=== PATIENT | male | born 1965 | race Caucasian/White ===

== ENCOUNTER 2017-08-10 19:48 | Emergency (ER) | payer MEDICAID ==
[~2017-08-10] VITALS: Ht 175.3 cm; Wt 82.5 kg
[~2017-08-10 19:48] MED LIST: ALBU18HF2 INH; ALBU6.7H INH; AZIT250T PO; CITA20TA19 PO; CLOT15CR29 TP; CLOT15CR5 TP; CLOT15CR73 TP; KETO15CR2 TOP; MUPI22OI TP
[2017-08-10 20:45] LABS: BASOPHILS % (AUTO) 0 % (0-1); EOSINOPHILS # (AUTO) 0.2 X10'3 (0-0.9); EOSINOPHILS % (AUTO) 1.7 % (0-6); HEMATOCRIT 42.7 % (42.0-52.0); HEMOGLOBIN 14.9 g/dl (14.0-17.9); LYMPHOCYTES # (AUTO) 1.1 X10'3 (1.1-4.8); MEAN CORPUSCULAR HEMOGLOBIN 32.3 PG (27.0-31.0); MEAN CORPUSCULAR HGB CONC 34.8 % (33.0-36.5); MEAN CORPUSCULAR VOLUME 92.8 FL (78-98); MEAN PLATELET VOLUME 7.9 FL (7.4-10.4); MONOCYTES # (AUTO) 0.7 X10'3 (0-0.9); MONOCYTES % (AUTO) 5.4 % (2-12); NEUTROPHILS # (AUTO) 10.4 X10'3 (1.8-7.7); NEUTROPHILS % (AUTO) 83.9 % (42-75); PLATELET COUNT 129 X10'3 (140-440); RED CELL DISTRIBUTION WIDTH 12.5 % (11.5-14.5); WHITE BLOOD COUNT 12.4 X10'3 (4.5-11.0)
[2017-08-10 20:55] LABS: PARTIAL THROMBOPLASTIN TIME 26 SECONDS (22-32); PROTHROMBIN TIME 10.7 SECONDS (9.0-12.0)
[2017-08-10 20:58] LABS: ALANINE AMINOTRANSFERASE 19 U/L (12-78); ALBUMIN 3.7 G/DL (3.4-5.0); ALBUMIN/GLOBULIN RATIO 0.9 (1.1-1.5); ALKALINE PHOSPHATASE 87 IU/L (46-116); ANION GAP 13 (8-16); ASPARTATE AMINO TRANSFERASE 10 U/L (10-37); BILIRUBIN,TOTAL 1.1 MG/DL (0.1-1.0); BLOOD UREA NITROGEN 11 MG/DL (7-18); BUN/CREATININE RATIO 8.5 (5.4-32.0); CALCIUM 8.9 MG/DL (8.5-10.1); CHLORIDE 104 MMOL/L (99-107); GLUCOSE 116 MG/DL (70-104); POTASSIUM 3.6 MMOL/L (3.5-5.1); SODIUM 140 MMOL/L (135-145); TOTAL CARBON DIOXIDE 23.2 MMOL/L (24-32); TOTAL PROTEIN 7.8 G/DL (6.4-8.2); eGFR 58 ML/MIN
[2017-08-10] MEDS ORDERED: methylPREDNISolone sod succ 125mg/2ml vial IV ONE (21:15)
[2017-08-10] MEDS ORDERED: normal saline 1000ML IV soln IVB ONE (21:15)
[2017-08-10] MEDS ORDERED: ipratropium/albuterol 3ml nebule NEB ONE (21:15)
[2017-08-10] MEDS ORDERED: PRED20TA PO (21:17)
[2017-08-10] MEDS ORDERED: GUAI1TBM19 PO (21:18)
[2017-08-10 22:25] VITALS: BP 131/80
== END 2017-08-10 22:27 | disposition home or self-care (01) ==
LOC: ER 19:49
DX: J44.1 Chronic obstructive pulmonary disease with (acute) exacerbation (principal); J06.9 Acute upper respiratory infection, unspecified; Z90.49 Acquired absence of other specified parts of digestive tract; Z86.14 Personal history of Methicillin resistant Staphylococcus aureus infection; Z59.0 Homelessness; Z79.899 Other long term (current) drug therapy
CPT/HCPCS: 36415; 71045; 80053; 84484; 85025; 85610; 85730; 93005; 94640; 94760; 96361; 96374; 99285; J2930; J7030

== ENCOUNTER 2017-08-29 20:33 | Emergency (ER) | payer MEDICAID ==
[~2017-08-29] VITALS: Ht 175.3 cm; Wt 84.1 kg
[~2017-08-29 20:33] MED LIST changes: +GUAI1TBM19 PO
[2017-08-29] MEDS ORDERED: ibuprofen 200mg tablet PO ONE (21:40)
[2017-08-30 00:24] LABS: BASOPHILS % (AUTO) 0.5 % (0-1); EOSINOPHILS # (AUTO) 0.1 X10'3 (0-0.9); EOSINOPHILS % (AUTO) 2.1 % (0-6); HEMATOCRIT 38.8 % (42.0-52.0); HEMOGLOBIN 13.7 g/dl (14.0-17.9); LYMPHOCYTES # (AUTO) 1.5 X10'3 (1.1-4.8); MEAN CORPUSCULAR HEMOGLOBIN 32.1 PG (27.0-31.0); MEAN CORPUSCULAR HGB CONC 35.2 % (33.0-36.5); MEAN CORPUSCULAR VOLUME 91.3 FL (78-98); MEAN PLATELET VOLUME 6.9 FL (7.4-10.4); MONOCYTES # (AUTO) 0.3 X10'3 (0-0.9); MONOCYTES % (AUTO) 5.7 % (2-12); NEUTROPHILS # (AUTO) 2.6 X10'3 (1.8-7.7); NEUTROPHILS % (AUTO) 57.7 % (42-75); PLATELET COUNT 196 X10'3 (140-440); RED BLOOD COUNT 4.25 X10'6 (4.70-6.10); RED CELL DISTRIBUTION WIDTH 12.6 % (11.5-14.5); WHITE BLOOD COUNT 4.5 X10'3 (4.5-11.0)
[2017-08-30 00:34] LABS: PARTIAL THROMBOPLASTIN TIME 24 SECONDS (22-32); PROTHROMBIN TIME 10.4 SECONDS (9.0-12.0)
[2017-08-30 00:39] LABS: ALANINE AMINOTRANSFERASE 22 U/L (12-78); ALBUMIN 3.4 G/DL (3.4-5.0); ALBUMIN/GLOBULIN RATIO 0.9 (1.1-1.5); ALKALINE PHOSPHATASE 81 IU/L (46-116); ANION GAP 10 (8-16); ASPARTATE AMINO TRANSFERASE 9 U/L (10-37); BILIRUBIN,TOTAL 0.4 MG/DL (0.1-1.0); BLOOD UREA NITROGEN 13 MG/DL (7-18); BUN/CREATININE RATIO 9.4 (5.4-32.0); CALCIUM 8.7 MG/DL (8.5-10.1); CHLORIDE 106 MMOL/L (99-107); CREATININE 1.39 MG/DL (0.60-1.10); GLUCOSE 84 MG/DL (70-104); POTASSIUM 3.9 MMOL/L (3.5-5.1); SODIUM 143 MMOL/L (135-145); TOTAL CARBON DIOXIDE 27.1 MMOL/L (24-32); TOTAL PROTEIN 7.1 G/DL (6.4-8.2); eGFR 54 ML/MIN
[2017-08-30] MEDS ORDERED: rivaroxaban 15mg tablet PO STA (00:42)
[2017-08-30] MEDS ORDERED: RIVA15TA PO (00:44)
[2017-08-30] MEDS ORDERED: rivaroxaban 20mg tablet PO SCH (01:10)
[2017-08-30 01:16] VITALS: BP 143/57
[2017-08-30] MEDS ORDERED: rivaroxaban 15mg tablet PO SCH (08:00)
== END 2017-08-30 01:17 | disposition home or self-care (01) ==
LOC: ER 20:34
DX: I82.401 Acute embolism and thrombosis of unspecified deep veins of right lower extremity (principal); J44.9 Chronic obstructive pulmonary disease, unspecified; Z90.49 Acquired absence of other specified parts of digestive tract; Z59.0 Homelessness; Z79.899 Other long term (current) drug therapy; Z86.14 Personal history of Methicillin resistant Staphylococcus aureus infection
CPT/HCPCS: 36415; 80053; 85025; 85610; 85730; 93971; 99285

== ENCOUNTER 2019-08-17 17:16 | Emergency (ER) | payer MEDICAID ==
[~2019-08-17] VITALS: Ht 175.3 cm; Wt 88.6 kg
[~2019-08-17 17:16] MED LIST changes: -ALBU6.7H INH; +ALBU6.7H9 INH; +RIVA15TA PO
[2019-08-17 17:40] VITALS: BP 135/76
[2019-08-17] MEDS ORDERED: DOXY100C43 PO (18:41)
[2019-08-17] MEDS ORDERED: TETanus/Pertussis (Acell)/Diphther VAC/PF (Tdap-Adult) 0.5ml syringe IMVAC ONE (18:50)
[2019-08-17] MEDS ORDERED: DOXYCYCLINE 100MG CAPSULE PO STA (19:15)
== END 2019-08-17 19:49 | disposition home or self-care (01) ==
LOC: ER 17:17
DX: L02.414 Cutaneous abscess of left upper limb (principal); B95.8 Unspecified staphylococcus as the cause of diseases classified elsewhere; J44.9 Chronic obstructive pulmonary disease, unspecified; F17.200 Nicotine dependence, unspecified, uncomplicated; Z90.49 Acquired absence of other specified parts of digestive tract; Z86.14 Personal history of Methicillin resistant Staphylococcus aureus infection; Z79.2 Long term (current) use of antibiotics; Z79.899 Other long term (current) drug therapy
CPT/HCPCS: 10060; 90471; 90715; 99283

== ENCOUNTER 2022-03-04 09:26 | Emergency (ER) | payer MEDICAID ==
[~2022-03-04] VITALS: Ht 175.3 cm; Wt 77.3 kg
[~2022-03-04 09:26] MED LIST changes: -ALBU18HF2 INH; -ALBU6.7H9 INH; +ASPI-1071 PO; +ATOR20TA66 PO; -AZIT250T PO; -CITA20TA19 PO; -CLOT15CR29 TP; -CLOT15CR5 TP; -CLOT15CR73 TP; +ESCI5TAB PO; -GUAI1TBM19 PO; -KETO15CR2 TOP; -MUPI22OI TP; +PALI9TAB PO; +PRAZ2CAP2 PO; -RIVA15TA PO
[2022-03-04 09:33] VITALS: BP 118/79
[2022-03-04] MEDS ORDERED: DIF150T PO (10:20)
[2022-03-04] MEDS: fluconazole 150mg tablet PO ONE (10:34)
== END 2022-03-04 10:51 | disposition home or self-care (01) ==
LOC: ER 09:27
DX: B36.9 Superficial mycosis, unspecified (principal); I10 Essential (primary) hypertension; J44.9 Chronic obstructive pulmonary disease, unspecified; F17.200 Nicotine dependence, unspecified, uncomplicated; Z86.14 Personal history of Methicillin resistant Staphylococcus aureus infection; Z86.718 Personal history of other venous thrombosis and embolism; Z90.49 Acquired absence of other specified parts of digestive tract; Z79.82 Long term (current) use of aspirin; Z79.899 Other long term (current) drug therapy
CPT/HCPCS: 99283

== ENCOUNTER 2022-06-30 02:38 | Emergency (ER) | payer MEDICAID ==
[~2022-06-30] VITALS: Ht 175.3 cm; Wt 77.3 kg
[2022-06-30 02:41] VITALS: BP 137/84
== END 2022-06-30 08:56 | disposition left against medical advice (07) ==
LOC: ER 02:38
DX: M25.552 Pain in left hip (principal); Z53.21 Procedure and treatment not carried out due to patient leaving prior to being seen by health care provider

== ENCOUNTER 2023-02-02 16:33 | Emergency (ER) | payer MEDICAID ==
[~2023-02-02] VITALS: Ht 175.3 cm; Wt 81.8 kg
[~2023-02-02 16:33] MED LIST changes: +ALBU6.7H14 INH
[2023-02-02 17:24] VITALS: BP 118/85
[2023-02-02 17:56] LABS: BASOPHILS # (AUTO) 0.1 X10'3 (0-0.2); BASOPHILS % (AUTO) 0.4 % (0-1); EOSINOPHILS # (AUTO) 0.1 X10'3 (0-0.9); EOSINOPHILS % (AUTO) 0.5 % (0-6); HEMATOCRIT 44.9 % (42.0-52.0); LYMPHOCYTES % (AUTO) 7.8 % (21-51); MEAN CORPUSCULAR HEMOGLOBIN 31.5 PG (27.0-31.0); MEAN CORPUSCULAR HGB CONC 33.5 g/dL (33.0-36.5); MEAN CORPUSCULAR VOLUME 94.1 FL (78-98); MEAN PLATELET VOLUME 6.9 FL (7.4-10.4); MONOCYTES # (AUTO) 0.5 X10'3 (0-0.9); NEUTROPHILS % (AUTO) 87.3 % (42-75); PLATELET COUNT 214 X10'3 (140-440); RED BLOOD COUNT 4.77 X10'6 (4.70-6.10); RED CELL DISTRIBUTION WIDTH 13.3 % (11.5-14.5); WHITE BLOOD COUNT 12.6 X10'3 (4.5-11.0)
[2023-02-02 18:13] LABS: ALANINE AMINOTRANSFERASE 67 U/L (12-78); ALBUMIN 4.3 G/DL (3.4-5.0); ALBUMIN/GLOBULIN RATIO 1.3 (1.1-1.5); ALKALINE PHOSPHATASE 77 IU/L (46-116); ANION GAP 10 (8-16); ASPARTATE AMINO TRANSFERASE 26 U/L (10-37); BILIRUBIN,TOTAL 0.7 MG/DL (0.1-1.0); BLOOD UREA NITROGEN 17 MG/DL (7-18); BUN/CREATININE RATIO 11.8 (10.0-20.0); CHLORIDE 105 MMOL/L (99-107); CREATININE 1.44 MG/DL (0.60-1.10); GLUCOSE 98 MG/DL (70-104); POTASSIUM 4.1 MMOL/L (3.5-5.1); SODIUM 141 MMOL/L (135-145); TOTAL CARBON DIOXIDE 25.6 MMOL/L (24-32); TOTAL PROTEIN 7.7 G/DL (6.4-8.2); eGFR 51 ML/MIN
[2023-02-02 18:20] LABS: CALCIUM 9.1 MG/DL (8.5-10.1)
[2023-02-02 18:46] LABS: CLARITY,URINE CLEAR (Clear); GLUCOSE, URINE NEGATIVE (Neg); KETONES,URINE NEGATIVE (Neg); LEUKOCYTE ESTERASE ,URINE NEGATIVE (Neg); NITRITES, URINE NEGATIVE (Neg); OCCULT BLOOD,URINE NEGATIVE (Neg); PROTEIN,URINE NEGATIVE (Neg); UROBILINOGEN,URINE 0.2 E.U/dL (0.2-1.0)
[2023-02-02 19:40] LABS: UA COLLECTION TYPE CLN CATCH MIDSTREAM
[2023-02-02 20:12] LABS: COLOR,URINE DARK YELLOW (Yellow)
== END 2023-02-02 20:22 | disposition left against medical advice (07) ==
LOC: ER 16:34
DX: T67.5XXA Heat exhaustion, unspecified, initial encounter (principal); E87.6 Hypokalemia; I10 Essential (primary) hypertension; J44.9 Chronic obstructive pulmonary disease, unspecified; Z79.899 Other long term (current) drug therapy; Z90.49 Acquired absence of other specified parts of digestive tract; X58.XXXA Exposure to other specified factors, initial encounter; Y93.89 Activity, other specified; Y92.89 Other specified places as the place of occurrence of the external cause; Y99.8 Other external cause status
CPT/HCPCS: 36415; 80053; 81003; 85025; 99283

== ENCOUNTER 2023-08-13 09:15 | Emergency (ER) | payer MEDICAID ==
[~2023-08-13] VITALS: Ht 175.3 cm; Wt 99.0 kg
[2023-08-13 09:21] VITALS: BP 102/67; PULSE 96; RESP 16; TEMP 98; O2SAT 99
[2023-08-13 09:54] LABS: BASOPHILS % (AUTO) 0.5 % (0-1); EOSINOPHILS # (AUTO) 0.1 X10'3 (0-0.9); EOSINOPHILS % (AUTO) 1.9 % (0-6); HEMATOCRIT 44.6 % (42.0-52.0); HEMOGLOBIN 15.4 g/dl (14.0-17.9); LYMPHOCYTES # (AUTO) 1.7 X10'3 (1.1-4.8); LYMPHOCYTES % (AUTO) 23.4 % (21-51); MEAN CORPUSCULAR HEMOGLOBIN 32.5 PG (27.0-31.0); MEAN CORPUSCULAR HGB CONC 34.6 g/dL (33.0-36.5); MEAN CORPUSCULAR VOLUME 93.9 FL (78-98); MEAN PLATELET VOLUME 7.6 FL (7.4-10.4); MONOCYTES # (AUTO) 0.6 X10'3 (0-0.9); MONOCYTES % (AUTO) 7.7 % (2-12); NEUTROPHILS % (AUTO) 66.5 % (42-75); PLATELET COUNT 158 X10'3 (140-440); RED BLOOD COUNT 4.74 X10'6 (4.70-6.10); RED CELL DISTRIBUTION WIDTH 12.6 % (11.5-14.5); WHITE BLOOD COUNT 7.5 X10'3 (4.5-11.0)
[2023-08-13 10:21] LABS: ALANINE AMINOTRANSFERASE 21 U/L (12-78); ALBUMIN 3.7 G/DL (3.4-5.0); ALBUMIN/GLOBULIN RATIO 0.9 (1.1-1.5); ALKALINE PHOSPHATASE 75 IU/L (46-116); ANION GAP 10 (8-16); ASPARTATE AMINO TRANSFERASE 9 U/L (10-37); BILIRUBIN,TOTAL 0.5 MG/DL (0.1-1.0); BLOOD UREA NITROGEN 18 MG/DL (7-18); BUN/CREATININE RATIO 11.8 (10.0-20.0); CALCIUM 8.4 MG/DL (8.5-10.1); CHLORIDE 105 MMOL/L (99-107); CREATININE 1.52 MG/DL (0.60-1.10); GLUCOSE 109 MG/DL (70-104); POTASSIUM 3.9 MMOL/L (3.5-5.1); SODIUM 140 MMOL/L (135-145); TOTAL CARBON DIOXIDE 25.2 MMOL/L (24-32); TOTAL PROTEIN 7.6 G/DL (6.4-8.2); eCRCL 54 ML/MIN; eGFR 48 ML/MIN
[2023-08-13 10:28] LABS: PRO BRAIN NATRIURETIC PEPTIDE 2071 PG/ML (0-125)
== END 2023-08-13 09:47 | disposition home or self-care (01) ==
LOC: ER 09:16
DX: I45.10 Unspecified right bundle-branch block (principal)
CPT/HCPCS: 36415; 71045; 80053; 83880; 84484; 85025; 99284